=== PATIENT | female | born 1995 | race Caucasian/White ===

== ENCOUNTER → 2017-02-28 | Outpatient (REF) | payer SELFPAY | LOC: M LAB REF 10:35 | PROVIDERS: ATTEND Physician Assistant | DX: L03.032 Cellulitis of left toe (principal); L60.0 Ingrowing nail ==

== ENCOUNTER 2021-12-23 09:27 | Inpatient (IN) | payer SELFPAY ==
[~2021-12-23] VITALS: Ht 152.4 cm; Wt 78.2 kg
[2021-12-23] VITALS (7 sets, daily range): BP systolic 113–126; BP diastolic 61–66; O2SAT 98–99
[2021-12-23 10:03] LABS: HEMOGLOBIN 13.5 g/dl (12.0-15.5); MEAN CORPUSCULAR HEMOGLOBIN 29.1 pg (27.0-33.0); MEAN CORPUSCULAR HGB CONC 33.8 g/dl (32.0-36.5); MEAN CORPUSCULAR VOLUME 86.2 fl (80.0-96.0); PLATELET COUNT, AUTOMATED 187 10^3/uL (150-450); RED BLOOD COUNT 4.64 10^6/uL (4.00-5.40); WHITE BLOOD COUNT 18.9 10^3/uL (4.0-10.0)
[2021-12-23] MEDS ORDERED: ACETAMINOPHEN 650 MG SUPP PR ONE (10:15)
[2021-12-23 10:26] LABS: BLOOD UREA NITROGEN 15 MG/DL (7-18); CALCIUM LEVEL 9.4 MG/DL (8.5-10.1); CARBON DIOXIDE LEVEL 19 MEQ/L (21-32); CHLORIDE LEVEL 102 MEQ/L (98-107); CREATININE FOR GFR 0.99 MG/DL (0.55-1.30); GLOMERULAR FILTRATION RATE > 60.0 (>60); GLUCOSE, FASTING 155 MG/DL (70-100); POTASSIUM SERUM 3.5 MEQ/L (3.5-5.1); SODIUM LEVEL 135 MEQ/L (136-145)
[2021-12-23 10:27] LABS: RSV AMPLIFICATION NEGATIVE (NEGATIVE)
[2021-12-23 10:29] LABS: HCG, SERUM QUALITATIVE NEGATIVE (NEGATIVE)
[2021-12-23] MEDS ORDERED: FLUID PLACE HOLDER IV ONE (10:35)
[2021-12-23] MEDS ORDERED: VANCOMYCIN HCL IV ONE (10:35)
[2021-12-23] MEDS ORDERED: NS IV ONE (10:35)
[2021-12-23] MEDS ORDERED: cefTRIAXone SOD 2 GM in D5W MINI-BAG PLUS 50 ML IV ONE (10:35)
[2021-12-23 10:47] LABS: ALBUMIN 4.2 GM/DL (3.2-5.2); ALT/SGPT 26 U/L (12-78); AMYLASE 101 U/L (25-115); BILIRUBIN,DIRECT 0.3 MG/DL (0.0-0.2); BILIRUBIN,TOTAL 1.1 MG/DL (0.2-1.0); TOTAL PROTEIN 7.6 GM/DL (6.4-8.2)
[2021-12-23 10:51] LABS: LYMPHOCYTES 5 % (16-44); MONOCYTES 5 % (0-5); NEUTROPHILS 83 % (28-66)
[2021-12-23 10:52] LABS: PLATELET ESTIMATE NORMAL (NORMAL)
[2021-12-23 10:59] LABS: INR 1.09; PROTHROMBIN TIME 14.5 SECONDS (12.7-14.5)
[2021-12-23 11:00] LABS: PARTIAL THROMBOPLASTIN TIME 30.9 SECONDS (25.9-37.0)
[2021-12-23] MEDS ORDERED: KETAMINE HCL 200 MG/20 ML VIAL IV ONE (11:05)
[2021-12-23] MEDS ORDERED: levETIRAcetam INJection 1,000 MG in D5W 100 ML IV ONE (11:55)
[2021-12-23] MEDS ORDERED: VANCOMYCIN HCL 1,000 MG, VIAL MATE ADAPTER 1 EACH in NS 250 ML IV ONE ×2 (12:00→13:00)
[2021-12-23 12:43] LABS: APPEARANCE, CSF HAZY (CLEAR); COLOR, CSF COLORLESS (COLORLESS); CSF TUBE# CELL CNT TUBE 4
[2021-12-23 12:53] LABS: APPEARANCE, CSF TURBID (CLEAR); COLOR, CSF PINK (COLORLESS); CSF TUBE# CELL CNT TUBE 1
[2021-12-23 13:26] LABS: CSF TUBE# GLU TUBE 2; CSF TUBE# TP TUBE 2; GLUCOSE CSF < 1 MG/DL (40-75); TOTAL PROTEIN,CSF 740 MG/DL (15-45)
[2021-12-23] MEDS ORDERED: HOME MED LIST COMPLETE! XX SCH (13:45)
[2021-12-23] MEDS ORDERED: VANCOMYCIN HCL IV SCH (14:00)
[2021-12-23] MEDS ORDERED: NS IV SCH (14:00)
[2021-12-23] MEDS ORDERED: MATE ADAPTER IV SCH (14:00)
[2021-12-23] MEDS: dexameTHASONE 20MG/5ML VIAL (J1100 PER 1MG) IV SCH ×2 (16:09→20:37)
[2021-12-23] MEDS ORDERED: NS 1,000 ML IV SCH (17:45)
[2021-12-23] MEDS: NS 1,000 ML IV SCH (17:57)
[2021-12-23] MEDS: VANCOMYCIN HCL 1,000 MG, VIAL MATE ADAPTER 1 EACH in NS 250 ML IV SCH (20:37)
[2021-12-23] MEDS: cefTRIAXone SOD 2 GM in D5W MINI-BAG PLUS 50 ML IV SCH (23:21)
[2021-12-24] VITALS (14 sets, daily range): BP systolic 103–118; BP diastolic 57–75; O2SAT 96–99
[2021-12-24] MEDS: levETIRAcetam INJection 500 MG in D5W MINI-BAG PLUS 100 ML IV SCH ×2 (01:24→12:26)
[2021-12-24] MEDS: dexameTHASONE 20MG/5ML VIAL (J1100 PER 1MG) IV SCH ×4 (02:35→20:50)
[2021-12-24] MEDS: NS 1,000 ML IV SCH ×2 (05:01→12:26)
[2021-12-24 07:44] LABS: HEMATOCRIT 39.2 % (36.0-47.0); HEMOGLOBIN 13.4 g/dl (12.0-15.5); MEAN CORPUSCULAR HEMOGLOBIN 29.1 pg (27.0-33.0); MEAN CORPUSCULAR HGB CONC 34.2 g/dl (32.0-36.5); MEAN CORPUSCULAR VOLUME 85.2 fl (80.0-96.0); PLATELET COUNT, AUTOMATED 209 10^3/uL (150-450); WHITE BLOOD COUNT 22.4 10^3/uL (4.0-10.0)
[2021-12-24 08:14] LABS: BLOOD UREA NITROGEN 11 MG/DL (7-18); CALCIUM LEVEL 9.3 MG/DL (8.5-10.1); CARBON DIOXIDE LEVEL 22 MEQ/L (21-32); CHLORIDE LEVEL 114 MEQ/L (98-107); GLOMERULAR FILTRATION RATE > 60.0 (>60); GLUCOSE, FASTING 120 MG/DL (70-100); POTASSIUM SERUM 3.3 MEQ/L (3.5-5.1); SODIUM LEVEL 142 MEQ/L (136-145); VANCOMYCIN LEVEL TROUGH 5.6 UG/ML (10.0-20.0)
[2021-12-24] MEDS: VANCOMYCIN HCL 1,000 MG, VIAL MATE ADAPTER 1 EACH in NS 250 ML IV SCH ×3 (08:29→20:51)
[2021-12-24] MEDS: cefTRIAXone SOD 2 GM in D5W MINI-BAG PLUS 50 ML IV SCH ×2 (11:20→22:00)
[2021-12-24 20:58] LABS: IMMUNOGLOBULIN G 665 MG/DL (681-1648); IMMUNOGLOBULIN M 53.2 MG/DL (40-230)
[2021-12-24 21:37] LABS: HIV 1&2 SCREEN CENTAUR NEGATIVE (NEGATIVE)
[2021-12-25] VITALS (15 sets, daily range): BP systolic 99–135; BP diastolic 62–86; O2SAT 93–97
[2021-12-25] MEDS: levETIRAcetam INJection 500 MG in D5W MINI-BAG PLUS 100 ML IV SCH ×3 (00:54→23:34)
[2021-12-25] MEDS: NS 1,000 ML IV SCH ×4 (00:54→23:34)
[2021-12-25] MEDS: VANCOMYCIN HCL 1,000 MG, VIAL MATE ADAPTER 1 EACH in NS 250 ML IV SCH (03:00)
[2021-12-25] MEDS: dexameTHASONE 20MG/5ML VIAL (J1100 PER 1MG) IV SCH ×4 (03:55→20:06)
[2021-12-25 08:45] LABS: ALBUMIN 2.7 GM/DL (3.2-5.2); ALT/SGPT 37 U/L (12-78); BILIRUBIN,TOTAL 0.5 MG/DL (0.2-1.0); BLOOD UREA NITROGEN 18 MG/DL (7-18); CALCIUM LEVEL 8.8 MG/DL (8.5-10.1); CARBON DIOXIDE LEVEL 22 MEQ/L (21-32); CHLORIDE LEVEL 117 MEQ/L (98-107); CREATININE FOR GFR 0.55 MG/DL (0.55-1.30); GLOMERULAR FILTRATION RATE > 60.0 (>60); GLUCOSE, FASTING 163 MG/DL (70-100); POTASSIUM SERUM 3.5 MEQ/L (3.5-5.1); SODIUM LEVEL 145 MEQ/L (136-145); TOTAL PROTEIN 6.8 GM/DL (6.4-8.2); VANCOMYCIN LEVEL TROUGH 18.7 UG/ML (10.0-20.0)
[2021-12-25 09:03] LABS: HEMATOCRIT 32.6 % (36.0-47.0); MEAN CORPUSCULAR HEMOGLOBIN 28.6 pg (27.0-33.0); MEAN CORPUSCULAR HGB CONC 34.4 g/dl (32.0-36.5); MEAN CORPUSCULAR VOLUME 83.4 fl (80.0-96.0); PLATELET COUNT, AUTOMATED 212 10^3/uL (150-450); RED BLOOD COUNT 3.91 10^6/uL (4.00-5.40); WHITE BLOOD COUNT 12.8 10^3/uL (4.0-10.0)
[2021-12-25 09:09] LABS: HEMOGLOBIN 11.2 g/dl (12.0-15.5)
[2021-12-25] MEDS ORDERED: VANCOMYCIN HCL 1,000 MG, VIAL MATE ADAPTER 1 EACH in NS 250 ML IV SCH (11:00)
[2021-12-25] MEDS: cefTRIAXone SOD 2 GM in D5W MINI-BAG PLUS 50 ML IV SCH ×2 (11:23→22:24)
[2021-12-25] MEDS ORDERED: PROHANCE 279.3MG/ML 15ML VIAL As Ordered ONE (12:45)
[2021-12-26] VITALS (22 sets, daily range): BP systolic 138–158; BP diastolic 86–96; O2SAT 91–99
[2021-12-26] MEDS: dexameTHASONE 20MG/5ML VIAL (J1100 PER 1MG) IV SCH ×2 (02:14→09:35)
[2021-12-26 05:50] LABS: HEMOGLOBIN 11.2 g/dl (12.0-15.5); MEAN CORPUSCULAR HEMOGLOBIN 28.6 pg (27.0-33.0); MEAN CORPUSCULAR HGB CONC 33.9 g/dl (32.0-36.5); MEAN CORPUSCULAR VOLUME 84.4 fl (80.0-96.0); PLATELET COUNT, AUTOMATED 236 10^3/uL (150-450); RED BLOOD COUNT 3.91 10^6/uL (4.00-5.40); WHITE BLOOD COUNT 8.6 10^3/uL (4.0-10.0)
[2021-12-26 06:20] LABS: ALBUMIN 2.6 GM/DL (3.2-5.2); ALT/SGPT 213 U/L (12-78); BILIRUBIN,TOTAL 0.4 MG/DL (0.2-1.0); BLOOD UREA NITROGEN 18 MG/DL (7-18); CALCIUM LEVEL 8.4 MG/DL (8.5-10.1); CARBON DIOXIDE LEVEL 23 MEQ/L (21-32); CHLORIDE LEVEL 116 MEQ/L (98-107); CREATININE FOR GFR 0.54 MG/DL (0.55-1.30); GLOMERULAR FILTRATION RATE > 60.0 (>60); GLUCOSE, FASTING 160 MG/DL (70-100); POTASSIUM SERUM 3.9 MEQ/L (3.5-5.1); SODIUM LEVEL 146 MEQ/L (136-145); TOTAL PROTEIN 5.8 GM/DL (6.4-8.2)
[2021-12-26] MEDS: cefTRIAXone SOD 2 GM in D5W MINI-BAG PLUS 50 ML IV SCH ×2 (09:35→21:00)
[2021-12-26] MEDS: levETIRAcetam INJection 500 MG in D5W MINI-BAG PLUS 100 ML IV SCH (12:53)
[2021-12-26] MEDS: NS 1,000 ML IV SCH (19:55)
[2021-12-27] VITALS (24 sets, daily range): BP systolic 125–152; BP diastolic 84–99; O2SAT 89–98
[2021-12-27] MEDS: levETIRAcetam INJection 500 MG in D5W MINI-BAG PLUS 100 ML IV SCH ×3 (00:17→23:27)
[2021-12-27] MEDS: NS 1,000 ML IV SCH ×3 (02:45→21:08)
[2021-12-27 06:07] LABS: BASO % 0.2 % (0.0-1.0); HEMATOCRIT 38.5 % (36.0-47.0); HEMOGLOBIN 12.9 g/dl (12.0-15.5); LYMPH # 1.2 10^3/uL (1.5-5.0); LYMPH % 9.6 % (24.0-44.0); MEAN CORPUSCULAR HEMOGLOBIN 28.5 pg (27.0-33.0); MEAN CORPUSCULAR HGB CONC 33.5 g/dl (32.0-36.5); MEAN CORPUSCULAR VOLUME 85.2 fl (80.0-96.0); MONO # 0.9 10^3/uL (0.0-0.8); MONO % 7.2 % (2.0-8.0); NEUTROPHILS # 9.7 10^3/uL (1.5-8.5); NEUTROPHILS % 81.3 % (36.0-66.0); PLATELET COUNT, AUTOMATED 288 10^3/uL (150-450); RED BLOOD COUNT 4.52 10^6/uL (4.00-5.40); WHITE BLOOD COUNT 11.9 10^3/uL (4.0-10.0)
[2021-12-27 06:39] LABS: ALBUMIN 2.9 GM/DL (3.2-5.2); ALT/SGPT 186 U/L (12-78); BILIRUBIN,TOTAL 0.4 MG/DL (0.2-1.0); BLOOD UREA NITROGEN 12 MG/DL (7-18); CALCIUM LEVEL 9.1 MG/DL (8.5-10.1); CARBON DIOXIDE LEVEL 26 MEQ/L (21-32); CHLORIDE LEVEL 110 MEQ/L (98-107); CREATININE FOR GFR 0.56 MG/DL (0.55-1.30); GLOMERULAR FILTRATION RATE > 60.0 (>60); GLUCOSE, FASTING 137 MG/DL (70-100); POTASSIUM SERUM 3.4 MEQ/L (3.5-5.1); SODIUM LEVEL 142 MEQ/L (136-145)
[2021-12-27] MEDS: cefTRIAXone SOD 2 GM in D5W MINI-BAG PLUS 50 ML IV SCH ×2 (10:00→21:07)
[2021-12-27] MEDS: PENCICLOVIR 1% CREAM 5GM TOP SCH ×3 (12:32→21:11)
[2021-12-28] VITALS (20 sets, daily range): BP systolic 113–136; BP diastolic 68–94; O2SAT 96–98
[2021-12-28] MEDS ORDERED: ACETAMINOPHEN TAB 650MG DOSE (2X325MG) PO PRN (04:55)
[2021-12-28 07:17] LABS: HEMATOCRIT 42.5 % (36.0-47.0); HEMOGLOBIN 14.1 g/dl (12.0-15.5); MEAN CORPUSCULAR HEMOGLOBIN 28.2 pg (27.0-33.0); MEAN CORPUSCULAR HGB CONC 33.2 g/dl (32.0-36.5); PLATELET COUNT, AUTOMATED 321 10^3/uL (150-450); WHITE BLOOD COUNT 11.4 10^3/uL (4.0-10.0)
[2021-12-28 07:31] LABS: BLOOD UREA NITROGEN 11 MG/DL (7-18); CALCIUM LEVEL 8.1 MG/DL (8.5-10.1); CARBON DIOXIDE LEVEL 25 MEQ/L (21-32); CHLORIDE LEVEL 108 MEQ/L (98-107); CREATININE FOR GFR 0.64 MG/DL (0.55-1.30); GLOMERULAR FILTRATION RATE > 60.0 (>60); GLUCOSE, FASTING 93 MG/DL (70-100); POTASSIUM SERUM 3.3 MEQ/L (3.5-5.1); SODIUM LEVEL 140 MEQ/L (136-145)
[2021-12-28] MEDS: NS 1,000 ML IV SCH (08:33)
[2021-12-28] MEDS ORDERED: **UNRESOLVED NON-FORMULARY MED ORDER XX SCH (09:00)
[2021-12-28] MEDS: cefTRIAXone SOD 2 GM in D5W MINI-BAG PLUS 50 ML IV SCH ×2 (10:50→21:17)
[2021-12-28] MEDS: PENCICLOVIR 1% CREAM 5GM TOP SCH ×2 (10:50→13:27)
[2021-12-28] MEDS: levETIRAcetam INJection 500 MG in D5W MINI-BAG PLUS 100 ML IV SCH ×2 (13:20→23:40)
[2021-12-28 16:12] LABS: IgG SERUM (part of Subclasses) 668 mg/dL (586-1602); IgG Subclass 1 397 mg/dL (248-810); IgG Subclass 2 151 mg/dL (130-555); IgG Subclass 3 46 mg/dL (15-102); IgG Subclass 4 3 mg/dL (2-96)
[2021-12-28] MEDS ORDERED: PREVNAR 13 VACCINE SYRINGE IM ONE (17:00)
[2021-12-28] MEDS: valACYclovir HCL 500 MG TAB PO SCH (20:10)
[2021-12-29] VITALS (15 sets, daily range): BP systolic 119–135; BP diastolic 77–90; O2SAT 88–99
[2021-12-29 06:09] LABS: HEMATOCRIT 41.9 % (36.0-47.0); HEMOGLOBIN 14.2 g/dl (12.0-15.5); MEAN CORPUSCULAR HEMOGLOBIN 28.7 pg (27.0-33.0); MEAN CORPUSCULAR HGB CONC 33.9 g/dl (32.0-36.5); MEAN CORPUSCULAR VOLUME 84.8 fl (80.0-96.0); PLATELET COUNT, AUTOMATED 382 10^3/uL (150-450); RED BLOOD COUNT 4.94 10^6/uL (4.00-5.40); WHITE BLOOD COUNT 10.8 10^3/uL (4.0-10.0)
[2021-12-29 06:31] LABS: BLOOD UREA NITROGEN 10 MG/DL (7-18); CALCIUM LEVEL 8.8 MG/DL (8.5-10.1); CARBON DIOXIDE LEVEL 27 MEQ/L (21-32); CHLORIDE LEVEL 107 MEQ/L (98-107); CREATININE FOR GFR 0.58 MG/DL (0.55-1.30); GLOMERULAR FILTRATION RATE > 60.0 (>60); GLUCOSE, FASTING 96 MG/DL (70-100); POTASSIUM SERUM 3.5 MEQ/L (3.5-5.1); SODIUM LEVEL 140 MEQ/L (136-145)
[2021-12-29] MEDS ORDERED: levETIRAcetam 250MG TABLET (KEPPRA) PO SCH (09:00)
[2021-12-29] MEDS: cefTRIAXone SOD 2 GM in D5W MINI-BAG PLUS 50 ML IV SCH (09:10)
[2021-12-29] MEDS: valACYclovir HCL 500 MG TAB PO SCH (09:10)
[2021-12-29] MEDS ORDERED: VALA500T5 PO (10:57)
[2021-12-29] MEDS ORDERED: LEVO750T13 PO (10:57)
[2021-12-29] MEDS ORDERED: KEPP1TAB PO (10:57)
[2021-12-29] MEDS ORDERED: cefTRIAXone SOD 2 GM in D5W MINI-BAG PLUS 50 ML IV SCH (18:00)
== END 2021-12-29 18:25 | disposition home or self-care (01) | DRG 49 ==
LOC: M ED 09:27 → EDBD 09:27 → M ED INP 13:51 → ENRESERV 15:26 → M PCU 17:06
PROVIDERS: ADMIT Family Medicine; ATTEND Family Medicine
DX: G00.2 Streptococcal meningitis (principal); A40.3 Sepsis due to Streptococcus pneumoniae; G40.409 Other generalized epilepsy and epileptic syndromes, not intractable, without status epilepticus; M54.2 Cervicalgia; B00.1 Herpesviral vesicular dermatitis; Z20.822 Contact with and (suspected) exposure to COVID-19